=== PATIENT | female | born 1950 | race Asian ===

== ENCOUNTER 2016-03-27 16:40 | Emergency (ER) | payer SELFPAY ==
[~2016-03-27] VITALS: Ht 152.4 cm; Wt 34.0 kg
[2016-03-27 16:45] VITALS: Ht 152.4 cm; Wt 34.0 kg
--- NOTE | 2016-03-27 18:14 | RADRPT ---
PROCEDURE: XR Chest. CLINICAL INDICATION: Back pain. TECHNIQUE: Single frontal view of the chest was obtained COMPARISON: None FINDINGS: The heart and mediastinum are within normal limits. 17 mm round density projects over the retrocardiac space, perhaps representing a lung nodule. Recom mend CT examination of the chest for further evaluation. Differential considerations include neopla sm. Lungs are otherwise substantially clear. There is no pleural effusion or pneumothorax. Mild curvature of the thoracic spine convex to the right may represent patient position during imagi ng. IMPRESSION: 1. 17 mildly round density at retrocardiac space. 2. Recommend CT examination the chest for further evaluation. 3. Differential considerations include neoplasm. 4. Mild curvature of the thoracic spine convex to the right. 5. Otherwise, no evident acute cardiopulmonary disease. RPTAT: [facility] Physician Joey Date Time Electronically viewed and signed by Physician Joey on 03/27/2016 18:14 RS/
--- NOTE | 2016-03-27 19:01 | RADRPT ---
PROCEDURE: CT Chest without contrast. CLINICAL INDICATION: Back pain, abnormal chest x-ray TECHNIQUE: CT scan of the chest without contrast was performed on a multidetector high-resolution CT scanner. Coronal and sagittal reformatted images were obtained from the axial source images. The total exam CTDI equals 4 mGy and the total exam DLP equals 121 mGy-cm. One or more of the followin g dose reduction techniques were used: Automated exposure control, Adjustment of the mA and/or kV ac cording to patient size, and/or use of iterative reconstruction technique. COMPARISON: Chest x-ray today FINDINGS: Biapical pleural-parenchymal scarring. Two right middle lobe 4 mm subpleural nodules are identified. No acute consolidation. The round retrocardiac density on recent x-ray appears to correspond to a prominent left inferior pu lmonary vein. No pulmonary mass is seen. No mediastinal or hilar lymphadenopathy. Aortic atherosclerosis. No pleural or pericardial effusion. The visualized upper abdomen is grossly unremarkable. Thoracic dextroscoliosis. IMPRESSION: Two right middle lobe 4 mm subpleural nodules are identified. Recommend Chest CT follow-up based on Fleischner Society criteria guidelines and according to patient risk status. The round retrocardiac density on recent x-ray appears to correspond to a prominent left inferior pu lmonary vein. No pulmonary mass is seen. No acute consolidation or pleural effusion. Thoracic dextroscoliosis. RPTAT: AA .Demond Carpio MD, MD Date Time Electronically viewed and signed by .Demond Carpio MD, MD on 03/27/2016 19:00 .T/
[2016-03-27] MEDS ORDERED: IBUP400T22 PO (20:08)
[2016-03-27] MEDS ORDERED: ULT50 PO ×2 (20:08→20:18)
[2016-03-27 20:12] LABS: ALBUMIN 4.4 g/dl (3.3-4.9)
[2016-03-27 20:13] LABS: POTASSIUM 3.5 mmol/L (3.5-5.1)
--- NOTE | 2016-03-27 20:14 | ERD ---
ER Documentation Chief Complaint Date/Time DATE: 03/27/16 TIME: 20:11 Chief Complaint GENERALIZED BODY PAIN X 3 DAYS HPI 65-year-old female resents with her son for a one-week history of back pain extending from her upper thoracic down to her lower lumbar area. There is no history of trauma. Is no history of fevers, vomiting, shortness of breath or chest pain. There is no history of urinary complaints, bowel or bladder incontinence, weakness. There is no specific inciting events. She is having trouble sleeping due to pain. ROS All systems reviewed and are negative except as per history of present illness. Medications Home Meds Active Scripts Tramadol HCl (Tramadol HCl) 50 Mg Tablet, 50 MG PO Q4 Y for PAIN, #18 TAB Prov:AYAAN MUNOZ MD 03/27/16 Ibuprofen* (Motrin*) 400 Mg Tab, 400 MG PO Q6, #20 TAB Prov:AYAAN MUNOZ MD 03/27/16 Discontinued Scripts Tramadol HCl (Tramadol HCl) 50 Mg Tablet, 50 MG PO Q4 Y for PAIN, #18 TAB Prov:AYAAN MUNOZ MD 03/27/16 Allergies Allergies: Coded Allergies: No Known Allergy (Unverified , 03/27/16) PMhx/Soc Hx Alcohol Use: No Hx Substance Use: No Hx Tobacco Use: No Physical Exam Vitals Vital Signs Date Time Temp Pulse Resp B/P Pulse Ox O2 Delivery O2 Flow Rate FiO2 03/27/16 16:45 98.3 90 19 134/71 100 Physical Exam Const: [] Alert, [id number]. Head: Atraumatic Eyes: Normal Conjunctiva ENT: Normal External Ears, Nose and Mouth. Neck: Full range of motion..~ No meningismus. Resp: Clear to auscultation bilaterally Cardio: Regular rate and rhythm, no murmurs Abd: Soft, non tender, non distended. Normal bowel sounds Skin: No petechiae or rashes. Back: No midline or flank tenderness. Mild generalized paraspinous tenderness from the cervical extending to the upper lumbar. There is no appreciable skin changes, deformities or bony tenderness. Ext: No cyanosis, or edema Neur: Awake and alert. Patient has a normal gait for age. There is no appreciable focal neurologic deficits. Psych: Normal Mood and Affect Result Diagram: 03/27/16 1950 03/27/16 1950 Results 24 hrs Laboratory Tests Test 03/27/16 19:50 Alanine Aminotransferase (ALT/SGPT) 22IU/L Albumin 4.4g/dl Albumin/Globulin Ratio 1.18 Alkaline Phosphatase 73IU/L Anion Gap 17 Aspartate Amino Transf (AST/SGOT) 27IU/L Basophils # 0.010^3/ul Basophils % 0.3% Blood Urea Nitrogen 16mg/dl Calcium Level 9.4mg/dl Carbon Dioxide Level 29mmol/L Chloride Level 101mmol/L Creatinine 0.52mg/dl Direct Bilirubin 0.00mg/dl Eosinophils # 0.010^3/ul Eosinophils % 0.6% Globulin 3.70g/dl Glucose Level 103mg/dl Hematocrit 33.6% Hemoglobin 11.3g/dl Indirect Bilirubin 0.2mg/dl Lymphocytes # 3.310^3/ul Lymphocytes % 43.7% Mean Corpuscular Hemoglobin 31.4pg Mean Corpuscular Hemoglobin Concent 33.7g/dl Mean Corpuscular Volume 92.9fl Mean Platelet Volume 8.0fl Monocytes # 0.510^3/ul Monocytes % 5.9% Neutrophils # 3.810^3/ul Neutrophils % 49.5% Nucleated Red Blood Cells # 0.010^3/ul Nucleated Red Blood Cells % 0.0/100WBC Platelet Count 22995^3/UL Potassium Level 3.5mmol/L Red Blood Count 3.6210^6/ul Red Cell Distribution Width 12.3% Sodium Level 143mmol/L Total Bilirubin 0.2mg/dl Total Protein 8.1g/dl White Blood Count 7.710^3/ul Procedures/MDM Patient is from [facility] recently has not had primary care. The uncertain cause of pain is CBC and CMP were performed showed no acute abnormalities except for slight anemia. Chest X-ray 1V Interpreted by me: Soft Tissue: No acute abnormalities Bones: No acute abnormalities Mediastinum/Cardiac Silhouette/Lungs: [No acute abnormalities]. There is a 17 mm density in the retrocardiac area of uncertain etiology,CT recommended CT shows a prominent pulmonary vein as a source of the abnormality in the chest x-ray. Small subpleural nodules appear to be likely chronic and granulomatous in nature. Patient was stable during the ER course. Patient presents with generalized upper and lower back pain of uncertain etiology, likely musculoskeletal. There is no evidence of pneumonia, sepsis, fracture, dislocation, neurologic deficits , sepsis, bacterial infection. Symptoms do not suggest urinary tract etiology. She will treated with ibuprofen and tramadol and referral to local [facility] for primary care and further evaluation and management. She should return to the ER for new or worsening symptoms. The patient was stable with no new complaints during the ER course. Clinically, there is no current evidence to suggest meningitis, sepsis, acute abdomen, pneumonia, acute coronary syndrome, pulmonary embolism, or any other emergent condition appearing to require further evaluation or hospitalization. The patient should certainly return for any new or worsening symptoms per the aftercare instructions. They should otherwise follow-up with her primary care doctor for reevaluation this week. Departure Diagnosis: Primary Impression: Back pain Back pain location: thoracic back pain Chronicity: acute Back pain laterality: bilateral Qualified Code: M54.6 - Acute bilateral thoracic back pain Condition: Stable Patient Instructions: Back Pain (Acute Or Chronic) Additional Instructions: Examination showed no acute findings today. Likely musculoskeletal pain. Recheck with primary doctor for further evaluation or for new or worsening symptoms. AYAAN MUNOZ MD Mar 27, 2016 20:14
[2016-03-27 20:15] LABS: ALBUMIN/GLOBULIN RATIO 1.18; BASOPHILS % 0.3 % (0.0-2.0); BILIRUBIN,INDIRECT 0.2 mg/dl (0-1.1); BILIRUBIN,TOTAL 0.2 mg/dl (0.2-1.3); CALCIUM 9.4 mg/dl (8.4-10.2); CREATININE 0.52 mg/dl (0.44-1.00); EOSINOPHILS % 0.6 % (0.0-7.0); HEMATOCRIT 33.6 % (37.0-47.0); HEMOGLOBIN 11.3 g/dl (12.0-16.0); LYMPHOCYTES # 3.3 10^3/ul (0.8-2.9); LYMPHOCYTES % 43.7 % (15.0-51.0); MEAN CORPUSCULAR HEMOGLOBIN 31.4 pg (29.0-33.0); MEAN CORPUSCULAR HGB CONC 33.7 g/dl (32.0-37.0); MEAN CORPUSCULAR VOLUME 92.9 fl (82.0-101.0); MONOCYTE # 0.5 10^3/ul (0.3-0.9); MONOCYTES % 5.9 % (0.0-11.0); NEUTROPHIL # 3.8 10^3/ul (1.6-7.5); NEUTROPHILS % 49.5 % (39.0-77.0); PLATELET COUNT 283 10^3/UL (140-440); RED BLOOD COUNT 3.62 10^6/ul (4.20-5.40); RED CELL DISTRIBUTION WIDTH 12.3 % (11.5-14.5); TOTAL PROTEIN 8.1 g/dl (6.1-8.1); UNCORRECTED WBC 7.7 10^3/ul (4.8-10.8); WHITE BLOOD COUNT 7.7 10^3/ul (4.8-10.8)
[2016-03-27 20:27] LABS: CONDITION 1
[2016-03-27 21:02] VITALS: BP 128/70; PULSE 86; RESP 16; TEMP 97.5
== END 2016-03-27 21:02 | disposition home or self-care (01) ==
LOC: FTE 16:40
DX: M54.6 Pain in thoracic spine (principal)
CPT/HCPCS: 36415; 71010; 71250; 80053; 85025